=== PATIENT | female | born 1990 | race Caucasian/White ===

== ENCOUNTER 2018-10-14 09:36 | Emergency (ER) | payer MEDICAID ==
[2018-10-14 09:42] VITALS: BP 136/59
[2018-10-14] MEDS ORDERED: ALUM-MAG HYDROX-SIMETH 200-200-20MG/5ML PO ONE (11:05)
[2018-10-14] MEDS ORDERED: LIDOCAINE VISCOUS 2% PO ONE (11:05)
[2018-10-14] MEDS ORDERED: TYLENOL PO ONE (11:05)
[2018-10-14] MEDS ORDERED: DELTASONE PO ONE (11:05)
--- NOTE | 2018-10-14 11:06 | Emergency Department Report ---
HPI - General Chief Complaint: Sore Throat Time Seen by Provider: 10/14/18 10:54 - HPI HPI: Patient is a 12-year-old male who presents to ED with his mother complaining of throat pain 2 days. Patient describes pain as throbbing in nature, 8 out of 10 intensity, nonradiating, localized to his throat. Admits pain with swallowing and eating. Patient admits no appetite due to throat pain. Patient admits fever for the first 2 days but not at the moment. Patient denies nausea/vomiting/abdominal pain/shortness of breath/chest pain/headache. ED Past Medical Hx - Past Medical History Hx Hypertension: Yes (WITH ) Hx Congestive Heart Failure: No Hx Diabetes: No Hx Deep Vein Thrombosis: No Hx Renal Disease: No Hx Sickle Cell Disease: No Hx Seizures: No Hx Asthma: No Hx COPD: No Hx HIV: No - Surgical History Past Surgical History?: Yes Additional Surgical History: C section - Social History Smoking Status: Never Smoker Substance Use Type: None - Medications Home Medications: Home Medications Medication Instructions Recorded Confirmed Last Taken Type Azithromycin [Zithromax TAB] 500 mg PO QDAY #7 tablet 10/14/18 Unknown Rx Ibuprofen [Motrin 800 MG tab] 800 mg PO Q8HR PRN #15 tablet 10/14/18 Unknown Rx Nystas/Diphen/Xyl Visc/Mylanta 15 ml PO TID PRN #120 ml 10/14/18 Unknown Rx [Magic Mouthwash] ED Review of Systems ROS: Stated complaint: FLU LIKE Other details as noted in HPI Comment: All other systems reviewed and negative Constitutional: denies: chills, fever Eyes: denies: eye pain, eye discharge, vision change ENT: denies: ear pain, throat pain Respiratory: denies: cough, shortness of breath, wheezing Cardiovascular: denies: chest pain, palpitations Endocrine: no symptoms reported Gastrointestinal: denies: abdominal pain, nausea, diarrhea Genitourinary: denies: urgency, dysuria, frequency, hematuria, discharge Physical Exam - Physical Exam Vital Signs: Vital Signs 10/14/18 09:40 Temperature 97.5 F L Pulse Rate 89 Respiratory 16 Rate Blood Pressure 136/59 O2 Sat by Pulse 100 Oximetry Physical Exam: GENERAL: Alert and oriented x3, no apparent distress, Normal Gait, atraumatic. HEAD: Head is normocephalic and a-traumatic. NOSE: Nose symetrical, Nontender,Nares appeared normal. MOUTH:Mouth is well hydrated and without lesions. Tonsils erythematous and swollen with exudate, Uvula midline, Tongue not elevated. Mucous membranes are moist. Posterior pharynx exudative. Patent airways. NECK: Supple. Non edematous, No carotid bruits. No lymphadenopathy or thyromegaly. No C-spine tenderness LUNGS: Symetrical with respiration, CTAB. HEART: S1, S2 present, regular rate and rhythm without murmur, no rubs, no gallops. Non tender to palpation SKIN: Warm and dry, No lesions, No ulceration or induration present. ED Course Vital Signs 10/14/18 09:40 Temperature 97.5 F L Pulse Rate 89 Respiratory 16 Rate Blood Pressure 136/59 O2 Sat by Pulse 100 Oximetry ED Medical Decision Making - Medical Decision Making 27-year-old male presents with strep pharyngitis. ED course: Rapid strep tests ordered rapid strep test positive Patient received 1 dose of Tylenol, 60 mg of prednisone. Fever responsive to one dose of Tylenol. Vital signs stable patient is in no acute or respiratory distress. Discussed findings with patient about the positive strep. Discussed treatment in ED with patient Discussed the patient that strep throat is contagious and to limit sharing spoons and such. Application to be sent home on Motrin and a couple of days worth of prednisone. Discussed with patient follow-up with primary care physician. Patient verbally states he understands and will comply to follow-up. Critical care attestation.: If time is entered above; I have spent that time in minutes in the direct care of this critically ill patient, excluding procedure time. ED Disposition Clinical Impression: Strep pharyngitis, Acute bacterial tonsillitis Disposition: - TO HOME OR SELFCARE Is pt being admited?: No Does the pt Need Aspirin: No Condition: Stable Instructions: Tonsillitis (ED), Strep Throat (ED) Additional Instructions: Make sure to follow up with the primary care physician as discussed. Take all your medications as you've been prescribed. If you have any worsening symptoms or develop new symptoms please return to ED immediately. Prescriptions: Azithromycin [Zithromax TAB] 500 mg PO QDAY #7 tablet Ibuprofen [Motrin 800 MG tab] 800 mg PO Q8HR PRN #15 tablet PRN Reason: Pain Nystas/Diphen/Xyl Visc/Mylanta [Magic Mouthwash] 15 ml PO TID PRN #120 ml PRN Reason: Sore Throat Referrals: PRIMARY CARE,MD [Primary Care Provider] - 3-5 Days [facility] [Outside] - 3-5 Days [facility] [Outside] - 3-5 Days Forms: Work/School Release Form(ED) Time of Disposition: 11:57
== END 2018-10-14 12:16 | disposition home or self-care (01) ==
LOC: ED 09:36
DX: J02.0 Streptococcal pharyngitis (principal); I10 Essential (primary) hypertension; Z88.0 Allergy status to penicillin
CPT/HCPCS: 87430; 99283; J7512

== ENCOUNTER 2019-07-22 09:38 | Emergency (ER) | payer MEDICAID ==
[2019-07-22 10:02] VITALS: BP 126/78
[2019-07-22] MEDS ORDERED: IBUPROFEN PO ONE (10:45)
--- NOTE | 2019-07-22 10:48 | Emergency Department Report ---
Minor Respiratory - HPI Chief Complaint: Extremity Injury, Upper Stated Complaint: SORE THROAT/LIGHT HEADED/DIZZINESS Time Seen by Provider: 07/22/19 10:40 Duration: 1 week Minor Respiratory: Yes Sore Throat, Yes Able to Tolerate Fluids, Yes Fever, No Rhinorrhea, No Ear Pain, No Cough, No Sick Contacts, No Hemoptysis, No Chest Pain, No Shortness of Breath Other History: 28-year-old -[place] female presents to the emergency room complaining of sore throat headache dizziness and generalized muscle soreness 1 week. Patient reports chills but unsure she's had a fever. Denies any past medical history she does report an allergy to penicillin. ED Review of Systems ROS: Stated complaint: SORE THROAT/LIGHT HEADED/DIZZINESS Other details as noted in HPI Constitutional: chills, fever ENT: throat pain Neurological: headache ED Past Medical Hx - Past Medical History Hx Hypertension: Yes (WITH ) Hx Congestive Heart Failure: No Hx Diabetes: No Hx Deep Vein Thrombosis: No Hx Renal Disease: No Hx Sickle Cell Disease: No Hx Seizures: No Hx Asthma: No Hx COPD: No Hx HIV: No - Surgical History Additional Surgical History: C section - Social History Smoking Status: Never Smoker Substance Use Type: None - Medications Home Medications: Home Medications Medication Instructions Recorded Confirmed Last Taken Type Azithromycin [Zithromax TAB] 500 mg PO QDAY #7 tablet 10/14/18 Unknown Rx Ibuprofen [Motrin 800 MG tab] 800 mg PO Q8HR PRN #15 tablet 10/14/18 Unknown Rx Nystas/Diphen/Xyl Visc/Mylanta 15 ml PO TID PRN #120 ml 10/14/18 Unknown Rx [Magic Mouthwash] Clarithromycin [Biaxin] 250 mg PO BID #14 tab 07/22/19 Unknown Rx Ibuprofen [Motrin 800 MG tab] 800 mg PO Q8HR PRN #21 tablet 07/22/19 Unknown Rx Minor Respiratory Exam - Exam General: Vital signs noted. No distress. Alert and acting appropriately. HEENT: Yes Pharyngeal Erythema, Yes Pharyngeal Exudates, Yes Moist Mucous Membranes, No Rhinorrhea, No Conjuctival Injection, No Frontal Tenderness, No Maxillary Tenderness Ear: Neither TM Bulge, Neither TM Erythema, Neither EAC Pain, Neither EAC Discharge Neck: Yes Adenopathy, Yes Supple Lungs: Yes Good Air Exchange, No Wheezes, No Ronchi, No Stridor, No Cough, No Labored Respirations, No Retractions, No Use of Accessory Muscles, No Other Abnormal Lung Sounds Heart: No Regular (tachycardia ) Abdomen: Yes Normal Bowel Sounds, No Tenderness, No Peritoneal Signs Skin: No Rash, No Edema Neurologic: Alert and oriented, no deficits. Musculoskeletal: Unremarkable. ED Course Vital Signs 07/22/19 07/22/19 09:51 10:13 Temperature 101.3 F H 101.3 F H Pulse Rate 119 H 119 H Respiratory 18 18 Rate Blood Pressure 126/78 126/78 O2 Sat by Pulse 98 98 Oximetry ED Medical Decision Making - Medical Decision Making 28-year-old -[place] female presents to the emergency room complaining of sore throat headache dizziness and generalized muscle soreness 1 week. Patient reports chills but unsure she's had a fever. Denies any past medical history she does report an allergy to penicillin. Patient be treated for strep throat. Since allergic to penicillin will place him on clarithromycin. Critical care attestation.: If time is entered above; I have spent that time in minutes in the direct care of this critically ill patient, excluding procedure time. ED Disposition Clinical Impression: Exudative pharyngitis Disposition: DC-01 TO HOME OR SELFCARE Is pt being admited?: No Does the pt Need Aspirin: No Condition: Stable Instructions: Pharyngitis (ED) Additional Instructions: Completes her antibiotics pain medication as needed increase her fluid intake aphasia diet as tolerated Prescriptions: Clarithromycin [Biaxin] 250 mg PO BID #14 tab Ibuprofen [Motrin 800 MG tab] 800 mg PO Q8HR PRN #21 tablet PRN Reason: Pain , Severe (7-10) Referrals: [facility] [Outside] - 3-5 Days Forms: Work/School Release Form(ED)
== END 2019-07-22 11:15 | disposition home or self-care (01) ==
LOC: ED 09:38
DX: J02.9 Acute pharyngitis, unspecified (principal); Z88.0 Allergy status to penicillin
CPT/HCPCS: 99282